=== PATIENT | female | born 1945 | race Caucasian/White ===

== ENCOUNTER 2019-04-26 14:54 | Outpatient (CLI) | payer MEDICARE ==
--- NOTE | 2019-04-27 13:54 | Ultrasound Report ---
Reason: MASS CHEST WALL Procedure Date: 04/26/2019 Accession Number: [id number] / [id number] Procedure: US - Chest CPT Code: Final Report FULL RESULT: EXAM: ABDOMEN ULTRASOUND LIMITED EXAM DATE: 04/26/2019 03:34 PM. CLINICAL HISTORY: MASS CHEST WALL. Palpable lump mid anterior chest x3 months COMPARISON: None. TECHNIQUE: Real-time scanning was performed with static images obtained. FINDINGS: No soft tissue masses seen in palpable area. No fluid collection. This region appears to have underlying manubrium or sternum. IMPRESSION: No ultrasonographic findings in palpable area RADIA
== END 2019-04-26 14:55 | disposition home or self-care (01) ==
LOC: DI 14:54
PROVIDERS: ATTEND Nurse Practitioner
DX: R22.2 Localized swelling, mass and lump, trunk (principal)
CPT/HCPCS: 76604

== ENCOUNTER 2019-12-08 10:24 | Outpatient (CLI) | payer MEDICARE | END 2019-12-08 23:59 | disposition critical access hospital (66) | LOC: EMS 10:24 | PROVIDERS: ATTEND Surgery | DX: R10.32 Left lower quadrant pain (principal); R11.0 Nausea; M54.9 Dorsalgia, unspecified | CPT/HCPCS: A0425; A0429 ==

== ENCOUNTER 2019-12-08 10:39 | Emergency (ER) | payer MEDICARE ==
[2019-12-08] MEDS ORDERED: ONDANSETRON 4 MG/2 ML VIAL IVP STA ×2 (10:53→13:06)
[2019-12-08] MEDS ORDERED: HYDROmorphone 1 MG/ML CARPUJECT IVP STA (10:53)
--- NOTE | 2019-12-08 10:54 | ED Physician Documentation ---
PD HPI ABD PAIN - Stated complaint Stated Complaint: ABD PX - Chief complaint Chief Complaint: Abd Pain - History obtained from History obtained from: Patient - Additional information Additional information: 74-year-old woman on Xarelto for history of remote DVT/PE presents with lower abdominal pain that is been going on for a week but only was severe today. Today it is associated with nausea and retching. Small but otherwise normal bowel movement just prior to arrival. No meds on the way. No fevers. No history of abdominal surgeries. No history of colonoscopy. Review of Systems Ten Systems: 10 systems reviewed and negative Constitutional: reports: Sweats, Reviewed and negative GI: reports: Abdominal Pain, Nausea. denies: Constipation, Diarrhea PD PAST MEDICAL HISTORY - Present Medications Home Medications: Ambulatory Orders Medication Instructions Recorded Confirmed Ciprofloxacin HCl [Cipro] 500 mg PO BID #20 tablet 12/08/19 Hydrocodone/Acetaminophen 1 - 2 each PO Q6H PRN #14 tablet 12/08/19 [Hydrocodon-Acetaminophen 5-325] Metoclopramide [Reglan] 10 mg PO Q6H PRN #20 tablet 12/08/19 metroNIDAZOLE [Flagyl] 500 mg PO TID #30 tablet 12/08/19 - Allergies Allergies/Adverse Reactions: Allergies Allergy/AdvReac Type Severity Reaction Status Date / Time Sulfa (Sulfonamide Allergy Unknown Verified 12/08/19 10:55 Antibiotics) prednisone AdvReac Nausea Verified 12/08/19 10:55 PD ED PE NORMAL - Vitals Vital signs reviewed: Yes - General General: Alert and oriented X 3, Other (Appears uncomfortable and retching) - HEENT HEENT: PERRL, EOMI - Neck Neck: Supple, no meningeal sign, No bony TTP - Cardiac Cardiac: RRR, No murmur - Respiratory Respiratory: No respiratory distress, Clear bilaterally - Abdomen Abdomen: Soft, Other (Tender in the right lower quadrant more than the left lower quadrant with mild guarding. Minimal upper abdominal tenderness.) - Back Back: No CVA TTP, No spinal TTP - Derm Derm: Normal color, Warm and dry - Extremities Extremities: No edema, No calf tenderness / cord - Neuro Neuro: Alert and oriented X 3, Normal speech Results - Vitals Vitals: Vital Signs - 24 hr 12/08/19 12/08/19 12/08/19 10:51 10:53 12:51 Temperature 37.9 C H Heart Rate 80 80 75 Respiratory 22 20 16 Rate Blood Pressure 174/95 H 139/79 H 128/65 O2 Saturation 100 100 100 12/08/19 13:19 Temperature 36.8 C Heart Rate 70 Respiratory 16 Rate Blood Pressure 129/74 O2 Saturation 100 Oxygen O2 Source Room air - Labs Labs: Laboratory Tests 12/08/19 12/08/19 12/08/19 10:50 10:50 12:37 WBC 8.9 RBC 4.64 Hgb 14.3 Hct 41.4 MCV 89.2 MCH 30.8 MCHC 34.5 RDW 11.9 L Plt Count 203 MPV 11.1 H Neut # (Auto) 6.7 H Lymph # (Auto) 1.3 L [place] # (Auto) 0.9 Eos # (Auto) 0.0 Baso # (Auto) 0.0 Absolute Nucleated RBC 0.00 Nucleated RBC % 0.0 Sodium 136 Potassium 4.0 Chloride 102 Carbon Dioxide 23 Anion Gap 11.0 BUN 15 Creatinine 0.9 Estimated GFR (MDRD) 62 L Glucose 124 H Calcium 9.1 Total Bilirubin 1.4 H AST 16 ALT 16 Alkaline Phosphatase 58 Total Protein 7.4 Albumin 4.4 Globulin 3.0 Albumin/Globulin Ratio 1.5 Lipase 36 Urine Color YELLOW Urine Clarity CLEAR Urine pH 8.0 H Ur Specific [place] 1.010 Urine Protein NEGATIVE Urine Glucose (UA) NEGATIVE Urine Ketones TRACE Urine Occult Blood TRACE-INTA Urine Nitrite NEGATIVE Urine Bilirubin NEGATIVE Urine Urobilinogen 0.2 (NORMAL) Ur Leukocyte Esterase NEGATIVE Ur Microscopic Review NOT INDICATED Urine Culture Comments NOT INDICATED - Rads (name of study) CT A/P Radiology: EMP read contemporaneously (Significant but uncomplicated diverticulitis) Procedures - Laceration (location) SCALP Other: Neurovascular intact Complexity: Simple PD MEDICAL DECISION MAKING - ED course ED course: 74-year-old woman presents with lower abdominal pain and tenderness. Found to have CT evidence of diverticulitis. No evidence of complication. Advised need for follow-up colonoscopy. Pain was controlled after a single 0.25 mg dose of IV Dilaudid noting that she says she is very sensitive to pain medications. Departure - Departure Disposition: 01 Home, Self Care Clinical Impression: Diverticulitis of gastrointestinal tract Condition: Good Record reviewed to determine appropriate education?: Yes Instructions: ED Diverticulitis Prescriptions: Ciprofloxacin HCl [Cipro] 500 mg PO BID #20 tablet metroNIDAZOLE [Flagyl] 500 mg PO TID #30 tablet Hydrocodone/Acetaminophen [Hydrocodon-Acetaminophen 5-325] 1 - 2 each PO Q6H PRN #14 tablet PRN Reason: pain Metoclopramide [Reglan] 10 mg PO Q6H PRN #20 tablet PRN Reason: nausea or headache Comments: Pain should be much better after a few days on the antibiotics. Return if worse. Do not drink alcohol while on the antibiotics. Do not exercise heavily while on the antibiotics as discussed, this is a trigger to suggest that you n eed a follow-up colonoscopy in about 2 months especially since you have never had one. Discuss this with your primary care physician. You can cut the pain medication in half since you are sensitive to pain pills. You can also use just Tylenol as needed. Discharge Date/Time: 12/08/19 13:51
[2019-12-08 11:07] LABS: BASOPHILS % (AUTO) 0.2 %; EOSINOPHILS % (AUTO) 0.1 %; HGB - HEMOGLOBIN 14.3 g/dL (12.0-16.0); LYMPHOCYTES # (AUTO) 1.3 10^3/uL (1.5-3.5); LYMPHOCYTES % (AUTO) 14.6 %; MEAN CORPUSCULAR HEMOGLOBIN 30.8 pg (27.0-31.0); MEAN CORPUSCULAR HGB CONC 34.5 g/dL (32.0-36.0); MEAN CORPUSCULAR VOLUME 89.2 fL (81.0-99.0); MEAN PLATELET VOLUME 11.1 fL (7.9-10.8); MONOCYTES # (AUTO) 0.9 10^3/uL (0.0-1.0); MONOCYTES % (AUTO) 9.6 %; NEUTROPHILS # (AUTO) 6.7 10^3/uL (1.5-6.6); NEUTROPHILS % (AUTO) 75.3 %; PLT - PLATELET COUNT 203 10^3/uL (130-450); RED BLOOD COUNT 4.64 10^6/uL (4.20-5.40); RED CELL DISTRIBUTION WIDTH 11.9 % (12.0-15.0); WHITE BLOOD COUNT 8.9 x10^3/uL (4.8-10.8)
[2019-12-08 11:34] LABS: ALBUMIN 4.4 g/dL (3.2-5.5); ALBUMIN/GLOBULIN RATIO 1.5 (1.0-2.2); BILIRUBIN,TOTAL 1.4 mg/dL (0.2-1.0); CALCIUM 9.1 mg/dL (8.5-10.3); CREATININE 0.9 mg/dL (0.4-1.0); TOTAL PROTEIN 7.4 g/dL (6.7-8.2)
--- NOTE | 2019-12-08 12:32 | CT Report ---
PROCEDURE: Abdomen/Pelvis W INDICATIONS: iv ONLY, LOW ABD PAIN CONTRAST: IV CONTRAST: Optiray 320 ml: 100 PO CONTRAST: *NO PO CONTRAST TECHNIQUE: After the administration of oral and intravenous contrast, 5 mm thick sections acquired from the diap hragms to the symphysis. 5 mm thick coronal and sagittal reformats were acquired. For radiation dos e reduction, the following was used: automated exposure control, adjustment of mA and/or kV accordin g to patient size. COMPARISON: None. FINDINGS: Image quality: Excellent. ABDOMEN: Lung bases: Lung bases are clear. Heart size is normal. Solid organs: Liver and spleen are normal in size and enhancement. Tiny well-circumscribed hypodens e area in the posterior segment of right hepatic lobe measures 5 mm in size is seen and is too small to characterize most likely represent benign process such as hepatic cyst. Small splenule is seen. Ga llbladder is within normal limits . Biliary system is non dilated. Pancreas enhances normally. No a drenal nodules. Kidneys demonstrate normal size and enhancement, without hydronephrosis. 1.2 cm carmita al cortical cyst is noted. Peritoneum and bowel: There is a small hiatal hernia. No evidence of bowel obstruction. Significant w all thickening involving proximal to mid sigmoid colon in left lower quadrant is seen. Numerous colon ic diverticuli are seen. Finding is suspicious for acute diverticulitis involving sigmoid colon. No d efinite extraluminal air is seen to suggest perforation. No discrete drainable abscess collection is noted. Adjacent distal ileum wall thickening is noted with mild mesenteric fat stranding likely repre sent reactive inflammatory changes. No peritoneal free fluid or free air. Nodes and vessels: No retroperitoneal or mesenteric adenopathy by size criteria. Aorta and inferior vena cava are normal in size. Miscellaneous: No ventral hernias. PELVIS: Genitourinary: Bladder wall thickness is normal. Miscellaneous: No inguinal hernias or adenopathy. Bones: No suspicious bony lesions. No vertebral body compression fractures. IMPRESSION: 1. Finding is concerning for acute diverticulitis involving proximal to mid sigmoid colon in left low er quadrant with significant adjacent inflammatory changes. No definite perforation is seen. No discr ete drainable abscess collection. Adjacent distal ileal wall thickening is noted extending to right l ower quadrant likely represent reactive inflammatory changes. No peritoneal free fluid or free air. 2. Small hiatal hernia. No evidence of bowel obstruction. 3. Tiny hypodensity in right lobe of liver likely represent hepatic cysts. Small splenule and left re nal cyst as above. No hydronephrosis. Reviewed by: Zain Perez MD on 12/08/2019 12:31 PM PDT Approved by: Zain Perez MD on 12/08/2019 12:31 PM PDT Station ID: [id number]
[2019-12-08] MEDS ORDERED: metroNIDAZOLE 250 MG TABLET PO STA (12:46)
[2019-12-08] MEDS ORDERED: CIPROFLOXACIN 250 MG TABLET PO STA (12:46)
[2019-12-08 12:47] LABS: BILIRUBIN,URINE NEGATIVE (NEGATIVE); GLUCOSE, URINE (UA) NEGATIVE (NEGATIVE); KETONES,URINE (UA) TRACE mg/dL (NEGATIVE); LEUKOCYTE ESTERASE, URINE NEGATIVE (NEGATIVE); NITRITE,URINE NEGATIVE (NEGATIVE); OCCULT BLOOD,URINE TRACE-INTA (NEGATIVE); PROTEIN,URINE NEGATIVE (NEGATIVE); UROBILINOGEN,URINE 0.2 (NORMAL) E.U./dL (NORMAL)
[2019-12-08 12:49] LABS: CLARITY,URINE CLEAR (CLEAR)
[2019-12-08 13:20] VITALS: BP 129/74
[2019-12-08] MEDS ORDERED: IOVERSOL 320 100 ML VIAL IVP ONE (13:20)
== END 2019-12-08 13:51 | disposition home or self-care (01) ==
LOC: EDUNIT# → ED 10:39
DX: K57.32 Diverticulitis of large intestine without perforation or abscess without bleeding (principal)
CPT/HCPCS: 36415; 74177; 80053; 81003; 83690; 85025; 96374; 96375; 96376; 99284; A9270; J1170; 81001; 87086

== ENCOUNTER 2020-01-31 09:29 | Outpatient (CLI) | payer MEDICARE ==
[2020-01-31 09:54] LABS: BASOPHILS % (AUTO) 0.4 %; EOSINOPHILS % (AUTO) 0.4 %; HGB - HEMOGLOBIN 14.9 g/dL (12.0-16.0); LYMPHOCYTES # (AUTO) 1.5 10^3/uL (1.5-3.5); MEAN CORPUSCULAR HEMOGLOBIN 30.2 pg (27.0-31.0); MEAN CORPUSCULAR HGB CONC 33.5 g/dL (32.0-36.0); MEAN CORPUSCULAR VOLUME 90.1 fL (81.0-99.0); MEAN PLATELET VOLUME 11.6 fL (7.9-10.8); MONOCYTES # (AUTO) 0.3 10^3/uL (0.0-1.0); MONOCYTES % (AUTO) 7.5 %; NEUTROPHILS # (AUTO) 2.6 10^3/uL (1.5-6.6); NEUTROPHILS % (AUTO) 58.5 %; PLT - PLATELET COUNT 176 10^3/uL (130-450); RED BLOOD COUNT 4.94 10^6/uL (4.20-5.40); RED CELL DISTRIBUTION WIDTH 12.6 % (12.0-15.0); WHITE BLOOD COUNT 4.5 x10^3/uL (4.8-10.8)
[2020-01-31 10:09] LABS: ALBUMIN 4.2 g/dL (3.2-5.5); ALBUMIN/GLOBULIN RATIO 1.6 (1.0-2.2); ALKALINE PHOSPHATASE 67 IU/L (42-121); ALT ALANINE AMINOTRANSFERASE 28 IU/L (10-60); AST ASPARTATE AMINOTRANSFERASE 26 IU/L (10-42); BUN - BLOOD UREA NITROGEN 19 mg/dL (6-20); CALCIUM 8.9 mg/dL (8.5-10.3); CARBON DIOXIDE - CO2 28 mmol/L (21-32); CHLORIDE 101 mmol/L (101-111); CHOL/HDL RATIO 3.9 (<4.4); CHOLESTEROL 193 mg/dL; CREATININE 0.7 mg/dL (0.4-1.0); GLUCOSE 100 mg/dL (70-100); HDL CHOLESTEROL 49 mg/dL; LDL CHOLESTEROL,CALCULATED 125 mg/dL; LDL/HDL RATIO 2.6 (<4.4); SODIUM 139 mmol/L (135-145); TOTAL PROTEIN 6.8 g/dL (6.7-8.2); VLDL CHOLESTEROL 19 mg/dL
== END 2020-01-31 09:30 | disposition home or self-care (01) ==
LOC: LAB 09:29
PROVIDERS: ATTEND Nurse Practitioner
DX: D68.51 Activated protein C resistance (principal); J32.9 Chronic sinusitis, unspecified; R05 Cough; K57.92 Diverticulitis of intestine, part unspecified, without perforation or abscess without bleeding; R22.2 Localized swelling, mass and lump, trunk
CPT/HCPCS: 36415; 80053; 80061; 83721; 84443; 85025

== ENCOUNTER 2020-03-17 08:50 | Day surgery (SDC) | payer MEDICARE ==
[2020-03-17] MEDS ORDERED: LACTATED RINGERS 1,000 ML IV ONE (09:33)
[2020-03-17] MEDS ORDERED: MIDAZOLAM 2 MG/2 ML VIAL IVP ONE (09:47)
[2020-03-17] MEDS ORDERED: fentaNYL 250 MCG/5 ML VIAL IVP ONE (09:47)
[2020-03-17] MEDS ORDERED: ONDANSETRON 4 MG/2 ML VIAL IVP ONE (09:47)
[2020-03-17] MEDS ORDERED: LACTATED RINGERS 700 ML IV ONE (10:47)
[2020-03-17 11:16] VITALS: BP 99/68
== END 2020-03-17 08:51 | disposition home or self-care (01) ==
LOC: SDS 08:50
PROVIDERS: ATTEND Surgery
DX: Z12.11 Encounter for screening for malignant neoplasm of colon (principal); K57.30 Diverticulosis of large intestine without perforation or abscess without bleeding; Z87.19 Personal history of other diseases of the digestive system
CPT/HCPCS: G0121; J3010; J7120

== ENCOUNTER 2020-07-07 12:16 | Outpatient (CLI) | payer MEDICARE ==
--- NOTE | 2020-07-07 15:56 | DEXA Report ---
PROCEDURE: Dexa Spine and/or Hip INDICATIONS: POSTMENOPAUSAL TECHNIQUE: Dual energy x-ray absorptiometry (DXA) was performed on a [employer] Video System. Regions measur ed are the AP Spine, femoral neck, and if needed forearm. COMPARISON: None. FINDINGS: Lumbar Spine: Bone Mineral Density 1.077 g/cm/cm,T score -0.9, Left Femoral Neck: Bone Mineral Density 0.743 g/cm/cm, T score -2.1, (T score greater or equal to -1.0: NORMAL) (T score from -1.1 to -2.4: OSTEOPENIA) (T score less than or equal to -2.5 to: OSTEOPOROSIS) Impression: Osteopenia. Patients with diagnosis of osteoporosis or osteopenia should have regular bone mineral density assess ment. For those eligible for Medicare, routine testing is allowed once every 2 years. Testing frequ ency can be increased for patients who have rapidly progressing disease or for those who are receivin g medical therapy to restore bone mass. Reviewed by: Ariel Cesar MD on 07/07/2020 3:54 PM PST Approved by: Ariel Cesar MD on 07/07/2020 3:54 PM PST Station ID: [id number]
== END 2020-07-07 12:17 | disposition home or self-care (01) ==
LOC: DI 12:16
PROVIDERS: ATTEND Nurse Practitioner
DX: M85.89 Other specified disorders of bone density and structure, multiple sites (principal); Z78.0 Asymptomatic menopausal state

== ENCOUNTER 2020-07-07 12:17 | Outpatient (CLI) | payer MEDICARE ==
--- NOTE | 2020-07-10 16:41 | Mammography Report ---
BILATERAL DIGITAL SCREENING MAMMOGRAM 3D/2D: 07/07/2020 CLINICAL: Routine screening. Comparison is made to exams dated: 09/25/2018 mammogram, 08/28/2017 mammogram, and 05/02/2016 mammogram - [place]. There are scattered fibroglandular elements in both breasts. No significant masses, calcifications, or other findings are seen in either breast. There has been no significant interval change. IMPRESSION: NEGATIVE There is no mammographic evidence of malignancy. A 1 year screening mammogram is recommended. This exam was interpreted at Station ID: [id number]. NOTE: For mammograms, a report in lay terms will be sent to the patient. Approximately 15% of breast malignancies will not be visualized mammographically. In the management of a palpable breast mass, a negative mammogram must not discourage biopsy of a clinically suspicious lesion. Electronically Signed By: Fabiano Briggs M.D. ar/penrad:07/07/2020 13:30:23 ACR BI-RADS Category 1: Negative 3341F PARENCHYMAL PATTERN: (A) - The breast(s) demonstrate(s) scattered fibroglandular densities. BI-RADS CATEGORY: (1) - 1 RECOMMENDATION: (ANNUAL) - Recommend routine annual screening mammography. [id number] 1 year screening LATERALITY: (B)
== END 2020-07-07 12:18 | disposition home or self-care (01) ==
LOC: DI 12:17
PROVIDERS: ATTEND Nurse Practitioner
DX: Z12.31 Encounter for screening mammogram for malignant neoplasm of breast (principal)

== ENCOUNTER 2021-01-04 15:51 | Outpatient (CLI) | payer MEDICARE | END 2021-01-04 15:52 | disposition home or self-care (01) | LOC: COV 15:51 | PROVIDERS: ATTEND Family Medicine | DX: R05 Cough (principal); R07.0 Pain in throat; R09.81 Nasal congestion; J34.89 Other specified disorders of nose and nasal sinuses; Z20.822 Contact with and (suspected) exposure to COVID-19 ==

== ENCOUNTER 2021-04-16 08:43 | Outpatient (CLI) | payer MEDICARE ==
--- NOTE | 2021-04-16 09:16 | XRAY Report ---
PROCEDURE: Knee 4 View RT INDICATIONS: KNEE PAIN,RIGHT TECHNIQUE: 4 views of the right knee(s) were acquired. COMPARISON: None. FINDINGS: Bones: Patellar osteophytes. A small medial compartment osteophyte. Suspect mild medial compartment joint space narrowing. No fractures or dislocations. No suspicious bony lesions. Soft tissues: Trace joint effusion. No suspicious soft tissue calcifications. 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 Trace joint effusion. Reviewed by: Anthony Rodríguez MD on 04/16/2021 9:14 AM PST Approved by: Anthony Rodríguez MD on 04/16/2021 9:14 AM PST Station ID: [id number]
== END 2021-04-16 08:44 | disposition home or self-care (01) ==
LOC: DI 08:43
PROVIDERS: ATTEND Nurse Practitioner
DX: M17.11 Unilateral primary osteoarthritis, right knee (principal); M25.461 Effusion, right knee

== ENCOUNTER 2022-04-10 09:23 | Outpatient (CLI) | payer MEDICARE ==
[2022-04-10 09:40] LABS: BASOPHILS % (AUTO) 0.7 %; EOSINOPHILS % (AUTO) 0.7 %; HGB - HEMOGLOBIN 14.8 g/dL (12.0-16.0); LYMPHOCYTES # (AUTO) 1.5 10^3/uL (1.5-3.5); LYMPHOCYTES % (AUTO) 33.6 %; MEAN CORPUSCULAR HEMOGLOBIN 29.8 pg (27.0-31.0); MEAN CORPUSCULAR HGB CONC 33.6 g/dL (32.0-36.0); MEAN CORPUSCULAR VOLUME 88.5 fL (81.0-99.0); MEAN PLATELET VOLUME 10.8 fL (7.9-10.8); MONOCYTES # (AUTO) 0.3 10^3/uL (0.0-1.0); MONOCYTES % (AUTO) 7.2 %; NEUTROPHILS # (AUTO) 2.6 10^3/uL (1.5-6.6); NEUTROPHILS % (AUTO) 57.6 %; PLT - PLATELET COUNT 204 10^3/uL (130-450); RED BLOOD COUNT 4.97 10^6/uL (4.20-5.40); RED CELL DISTRIBUTION WIDTH 12.1 % (12.0-15.0); WHITE BLOOD COUNT 4.4 x10^3/uL (4.8-10.8)
[2022-04-10 09:58] LABS: ALBUMIN 4.3 g/dL (3.2-5.5); ALBUMIN/GLOBULIN RATIO 1.4 (1.0-2.2); ALKALINE PHOSPHATASE 63 IU/L (42-121); ALT ALANINE AMINOTRANSFERASE 25 IU/L (10-60); AST ASPARTATE AMINOTRANSFERASE 25 IU/L (10-42); BILIRUBIN,TOTAL 0.7 mg/dL (0.2-1.0); BUN - BLOOD UREA NITROGEN 22 mg/dL (6-20); CALCIUM 9.1 mg/dL (8.5-10.3); CARBON DIOXIDE - CO2 30 mmol/L (21-32); CHLORIDE 100 mmol/L (101-111); CHOL/HDL RATIO 3.7 (<4.4); CHOLESTEROL 224 mg/dL; CREATININE 0.8 mg/dL (0.4-1.0); GFR - MDRD 70 (>89); GLUCOSE 95 mg/dL (70-100); HDL CHOLESTEROL 61 mg/dL; LDL CHOLESTEROL,CALCULATED 148 mg/dL; LDL/HDL RATIO 2.4 (<4.4); POTASSIUM 4.5 mmol/L (3.5-5.0); SODIUM 137 mmol/L (135-145); TOTAL PROTEIN 7.4 g/dL (6.7-8.2); TRIGLYCERIDES 77 mg/dL; VLDL CHOLESTEROL 15 mg/dL
[2022-04-10 10:10] LABS: THYROID STIMULATING HORMONE 2.47 uIU/mL (0.34-5.60)
== END 2022-04-10 09:24 | disposition home or self-care (01) ==
LOC: LAB 09:23
PROVIDERS: ATTEND Nurse Practitioner
DX: R53.83 Other fatigue (principal); Z13.220 Encounter for screening for lipoid disorders; Z51.81 Encounter for therapeutic drug level monitoring
CPT/HCPCS: 36415; 80053; 80061; 83721; 84443; 85025

== ENCOUNTER 2022-09-13 15:11 | Outpatient (CLI) | payer MEDICARE ==
--- NOTE | 2022-09-16 10:58 | Mammography Report ---
BILATERAL DIGITAL SCREENING MAMMOGRAM 3D/2D: 09/13/2022 CLINICAL: Routine screening. Family history of breast cancer. Comparison is made to exams dated: 07/07/2020 mammogram - [facility], 09/25/2018 mamm ogram, 08/28/2017 mammogram, 05/02/2016 mammogram, and 11/17/2014 mammogram - [place]. There are scattered areas of fibroglandular density in both breasts (category b / 25%-50% glandular t issue). There are benign cysts in the left breast. There also are benign calcifications in both breasts. No significant masses, calcifications, or other findings are seen in either breast. There has been no significant interval change. IMPRESSION: BENIGN There is no mammographic evidence of malignancy. A 1 year screening mammogram is recommended. Based on the Tyrer Cuzick model (a risk assessment model) the patients lifetime risk is 11.9% and he r 10 year risk is 10.8%. According to the ACR, ACS, and NCCN guidelines, an annual breast MRI exam al braden with mammogram is recommended if the patients lifetime risk is 20% or greater. This exam was interpreted at Station ID: [id number]. NOTE: For mammograms, a report in lay terms will be sent to the patient. Approximately 15% of breast malignancies will not be visualized mammographically. In the management of a palpable breast mass, a negative mammogram must not discourage biopsy of a clinically suspicious lesion. Electronically Signed By: Corey burns/[email or web address]:09/13/2022 20:55:16 letter sent: No_Letter ACR BI-RADS Category 2: Benign Finding(s) 3342F PARENCHYMAL PATTERN: (A) - The breast(s) demonstrate(s) scattered fibroglandular densities. BI-RADS CATEGORY: (2) - 2 Mammogram [id number] 1 year screening LATERALITY: (B)
== END 2022-09-13 15:12 | disposition home or self-care (01) ==
LOC: DI 15:11
DX: Z12.31 Encounter for screening mammogram for malignant neoplasm of breast (principal); Z80.3 Family history of malignant neoplasm of breast

== ENCOUNTER 2022-09-27 17:06 | Emergency (ER) | payer MEDICARE ==
[2022-09-27 17:56] LABS: BASOPHILS % (AUTO) 0.2 %; EOSINOPHILS % (AUTO) 0.1 %; HCT - HEMATOCRIT 40.5 % (37.0-47.0); HGB - HEMOGLOBIN 13.3 g/dL (12.0-16.0); LYMPHOCYTES # (AUTO) 2.1 10^3/uL (1.5-3.5); LYMPHOCYTES % (AUTO) 22.4 %; MEAN CORPUSCULAR HEMOGLOBIN 29.8 pg (27.0-31.0); MEAN CORPUSCULAR HGB CONC 32.8 g/dL (32.0-36.0); MEAN CORPUSCULAR VOLUME 90.6 fL (81.0-99.0); MEAN PLATELET VOLUME 10.9 fL (7.9-10.8); MONOCYTES # (AUTO) 0.8 10^3/uL (0.0-1.0); MONOCYTES % (AUTO) 8.6 %; NEUTROPHILS # (AUTO) 6.3 10^3/uL (1.5-6.6); NEUTROPHILS % (AUTO) 68.4 %; PLT - PLATELET COUNT 179 10^3/uL (130-450); RED BLOOD COUNT 4.47 10^6/uL (4.20-5.40); RED CELL DISTRIBUTION WIDTH 12.5 % (12.0-15.0); WHITE BLOOD COUNT 9.3 x10^3/uL (4.8-10.8)
[2022-09-27] MEDS ORDERED: SODIUM CHLORIDE 0.9% 1,000 ML IV STA (17:56)
[2022-09-27] MEDS ORDERED: ONDANSETRON 4 MG/2 ML VIAL IVP STA (17:56)
--- NOTE | 2022-09-27 17:58 | ED Physician Documentation ---
History of Present Illness - Stated complaint Stated Complaint: ABD/BACK PX - Chief complaint Chief Complaint: Abd Pain - Additonal information Additional information: 76-year-old female presents emergency department for evaluation of 1 week lower pelvic pain. She presents here at the request of the walk-in clinic. 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 Patient states that for much of the last week she has had a constant lower abdominal pain. Left side greater than right. Reporting mostly normal bowel movements though some constipation. No fevers. No pertinent past surgical history. Patient does have a history of factor V Leiden deficiency. She does take Xarelto. She does have a history of previous PE as well as DVT. Patient reports colonoscopy little more than a year ago which was unremarkable and no polyps found. Review of Systems Constitutional: denies: Fever, Chills Throat: reports: Reviewed and negative Cardiac: reports: Reviewed and negative Respiratory: reports: Reviewed and negative GI: reports: Abdominal Pain, Nausea, Constipation. 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: Dilation and currettage - Present Medications Home Medications: Ambulatory Orders Medication Instructions Recorded Confirmed Citalopram Hydrobromide [Celexa] 20 mg ORAL DAILY 03/17/20 09/27/22 Rivaroxaban [Xarelto] 20 mg ORAL DAILY 03/17/20 09/27/22 Amox/Clav 875/125 [Augmentin] 1 each PO Q12H #20 tablet 09/27/22 Omeprazole Magnesium 20 mg PO DAILY 09/27/22 09/27/22 - Allergies Allergies/Adverse Reactions: Allergies Allergy/AdvReac Type Severity Reaction Status Date / Time Sulfa (Sulfonamide Allergy Unknown Verified 09/27/22 18:12 Antibiotics) prednisone AdvReac Nausea Verified 09/27/22 18:12 - Social History Does the pt smoke?: No Smoking Status: Never smoker Does the pt drink ETOH?: No Does the pt have substance abuse?: No PD ED PE NORMAL - General General: Alert and oriented X 3, No acute distress - HEENT HEENT: Atraumatic, Moist mucous membranes - Neck Neck: Supple, no meningeal sign, No adenopathy - Cardiac Cardiac: RRR, No murmur - Respiratory Respiratory: No respiratory distress, Clear bilaterally - Abdomen Abdomen: Normal bowel sounds, Soft. No: Non tender (Focal tenderness bilateral lower quadrants of the abdomen left greater than right. 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0 Sodium 136 Potassium 3.9 Chloride 98 L Carbon Dioxide 27 Anion Gap 11.0 BUN 18 Creatinine 1.0 Estimated GFR (MDRD) 54 L Glucose 95 Calcium 8.9 Total Bilirubin 1.5 H AST 20 ALT 21 Alkaline Phosphatase 55 Total Protein 7.1 Albumin 4.2 Globulin 2.9 Albumin/Globulin Ratio 1.4 Lipase 33 Urine Color YELLOW Urine Clarity CLEAR Urine pH 6.5 Ur Specific [place] <=1.005 Urine Protein NEGATIVE Urine Glucose (UA) NEGATIVE Urine Ketones NEGATIVE Urine Occult Blood TRACE-LYSE Urine Nitrite POSITIVE H Urine Bilirubin NEGATIVE Urine Urobilinogen 0.2 (NORMAL) Ur Leukocyte Esterase NEGATIVE Urine RBC 0-5 Urine WBC 0-3 Ur Epithelial Cells FEW Transitional Ur Squamous Epith Cells FEW Squamous Urine Bacteria Rare Ur Microscopic Review INDICATED Urine Culture Comments INDICATED - Rads (name of study) CT abd Relevant Findings:: Final report received (Diverticulitis of the proximal sigmoid colon without pericolonic abscess. Follow-up colonoscopy is recommended to exclude underlying neoplasm. Normal appendix.) PD Medical Decision Making - ED course Complexity details: reviewed results, re-evaluated patient, d/w patient ED course: 76-year-old female that has a history of factor V Leiden deficiency on lifetime Xarelto presents the emergency department for evaluation of 1 week of lower abdominal tenderness left greater than right. She has had some mild constipation but no black or bloody stools. No pertinent past surgical history. On exam there was focal tenderness in the left lower quadrant but no guarding or rebound. We did obtain a Urinalysis. It was nitrite positive but no other markers of infection. Patient has no dysuria urgency or frequency. As such we will defer antibiotics unless the culture is grossly suggestive of infection. I did obtain CBC and electrolytes and per my interpretation again no acute worrisome findings. Subsequently a CT of the abdomen was completed and it did show uncomplicated diverticulitis without findings of perforation or abscess. The patient was administered a liter of IV fluids here in the emergency department and felt better on reexam. I did offer a short course of opioids to be discharged home with but she declined that. Given the lifetime Xarelto use she is not an NSAID candidate. We discussed the usual conservative care measures for diverticulitis as well as the emergent return precautions. She is advised to follow close with PCP to determine if she would benefit from an outpatient colonoscopy. Departure - Departure Disposition: 01 Home, Self Care Clinical Impression: Acute diverticulitis Condition: Stable Record reviewed to determine appropriate education?: Yes Instructions: Diverticulitis Dc Prescriptions: Amox/Clav 875/125 [Augmentin] 1 each PO Q12H #20 tablet Comments: Jessy came to the emergency department because you have had some pain in your lower abdomen now for several days. The CT scan does show diverticulitis but nothing to suggest perforation or abscess. This is typically treated with a short course of antibiotics. Prescription for Augmentin has been sent to the [facility] in [place]. Your first dose was given here in the ER. I would recommend that you have a clear liquid diet over the next 24 to 48 hours. If the antibiotics are making your pain better then you can start with simple foods like bananas, rice, applesauce and toast. If your pain is not improving, you develop fevers or have uncontrolled vomiting or black or bloody or mucoid stools you should return immediately to the ER. Please discuss this ED visit with your primary care provider. The general recommendation is to have a repeat colonoscopy several weeks after a diverticulitis event to ensure that there are no findings such as a mass that could have contributed to the development of diverticulitis.
[2022-09-27 18:04] LABS: ALBUMIN 4.2 g/dL (3.2-5.5); ALBUMIN/GLOBULIN RATIO 1.4 (1.0-2.2); BILIRUBIN,TOTAL 1.5 mg/dL (0.2-1.0); CALCIUM 8.9 mg/dL (8.5-10.3); POTASSIUM 3.9 mmol/L (3.5-5.0); TOTAL PROTEIN 7.1 g/dL (6.7-8.2)
[2022-09-27] MEDS ORDERED: iohexoL-300 100 ML VIAL ONE (18:38)
--- NOTE | 2022-09-27 19:01 | CT Report ---
PROCEDURE: ABDOMEN/PELVIS W INDICATIONS: lower abd pain; ? divertic CONTRAST: 1100ml omni 300 TECHNIQUE: After the administration of IV contrast, 5 mm thick sections acquired from the diaphragms to the symp hysis. 5 mm thick coronal and sagittal reformats were acquired. For radiation dose reduction, the f ollowing was used: automated exposure control, adjustment of mA and/or kV according to patient size. COMPARISON: 12/08/2019 CT FINDINGS: Image quality: Excellent. Lung bases and heart: Unremarkable. Liver: No solid mass. Gallbladder and biliary tree: Within normal limits Spleen: No splenomegaly. Pancreas: No pancreatic ductal dilation. Adrenals: No adrenal nodule. Kidneys and ureters: No hydronephrosis. No renal cystic lesion which requires follow up. No solid mas s. Bowel and peritoneum: Small hiatal hernia. No bowel distension. No pathologic free fluid. Normal appe ndix. Diverticulosis of the descending and sigmoid colon. Moderate thickening of the sigmoid colon pr oximally. Mild pericolonic fat stranding. No pericolonic abscess. Lymph nodes: No central or retroperitoneal adenopathy. Vessels: No infrarenal aortic aneurysm. PELVIS Reproductive organs: Unremarkable. Bladder: Unremarkable. Lymph nodes: Unremarkable. Bones: No aggressive osseous abnormality. Other: No significant ventral or inguinal hernia. IMPRESSION: 1. Diverticulitis of the proximal sigmoid colon without pericolonic abscess. Follow-up colonoscopy is recommended to exclude underlying neoplasm. 2. Normal appendix. Reviewed by: Eddie Pal MD on 09/27/2022 7:00 PM PDT Approved by: Eddie Pal MD on 09/27/2022 7:00 PM PDT Station ID: [id number]
[2022-09-27] MEDS ORDERED: iohexoL-300 100 ML VIAL IVP ONE (19:06)
[2022-09-27 19:10] LABS: BILIRUBIN,URINE NEGATIVE (NEGATIVE); GLUCOSE, URINE (UA) NEGATIVE (NEGATIVE); KETONES,URINE (UA) NEGATIVE (NEGATIVE); LEUKOCYTE ESTERASE, URINE NEGATIVE (NEGATIVE); NITRITE,URINE POSITIVE (NEGATIVE); OCCULT BLOOD,URINE TRACE-LYSE (NEGATIVE); PH,URINE 6.5 PH (5.0-7.5); PROTEIN,URINE NEGATIVE (NEGATIVE); UROBILINOGEN,URINE 0.2 (NORMAL) E.U./dL (NORMAL)
[2022-09-27 19:16] LABS: CLARITY,URINE CLEAR (CLEAR)
[2022-09-27] MEDS ORDERED: AMOX/CLAV 875 MG/125 MG TABLET PO STA (19:18)
[2022-09-27 19:26] LABS: RBC,URINE 0-5 /HPF (0-5); SQUAMOUS EPITHELIAL CELL,UR FEW Squamous (<= Few); WBC,URINE 0-3 /HPF (0-5)
[2022-09-27 19:27] LABS: BACTERIA,URINE Rare /HPF (None Seen); EPITHELIAL CELLS,UR FEW Transitional /HPF (<= Few)
[2022-09-27 20:06] VITALS: BP 123/79
== END 2022-09-27 20:06 | disposition home or self-care (01) ==
LOC: ED 17:06
DX: K57.32 Diverticulitis of large intestine without perforation or abscess without bleeding (principal)
CPT/HCPCS: 36415; 74177; 80053; 81001; 83690; 85025; 87086; 99284; A9270; Q9967; 81003

== ENCOUNTER 2022-10-31 07:44 | Outpatient (CLI) | payer MEDICARE ==
[2022-10-31 08:38] LABS: H. PYLORIS ANTIGEN STL NEGATIVE (Negative)
== END 2022-10-31 07:45 | disposition home or self-care (01) ==
LOC: LAB 07:44
PROVIDERS: ATTEND Physician Assistant
DX: K21.9 Gastro-esophageal reflux disease without esophagitis (principal); R14.0 Abdominal distension (gaseous)
CPT/HCPCS: 87338

== ENCOUNTER 2023-05-12 16:08 | Emergency (ER) | payer MEDICARE ==
[2023-05-12 16:30] VITALS: BP 147/90; O2SAT 97
[2023-05-12 16:38] LABS: BASOPHILS % (AUTO) 0.4 %; EOSINOPHILS % (AUTO) 0.4 %; HCT - HEMATOCRIT 41.6 % (37.0-47.0); HGB - HEMOGLOBIN 14.1 g/dL (12.0-16.0); LYMPHOCYTES # (AUTO) 1.6 10^3/uL (1.5-3.5); LYMPHOCYTES % (AUTO) 35.2 %; MEAN CORPUSCULAR HEMOGLOBIN 29.7 pg (27.0-31.0); MEAN CORPUSCULAR HGB CONC 33.9 g/dL (32.0-36.0); MEAN CORPUSCULAR VOLUME 87.8 fL (81.0-99.0); MEAN PLATELET VOLUME 10.4 fL (7.9-10.8); MONOCYTES # (AUTO) 0.5 10^3/uL (0.0-1.0); MONOCYTES % (AUTO) 10.6 %; NEUTROPHILS # (AUTO) 2.4 10^3/uL (1.5-6.6); NEUTROPHILS % (AUTO) 53.2 %; PLT - PLATELET COUNT 203 10^3/uL (130-450); RED BLOOD COUNT 4.74 10^6/uL (4.20-5.40); RED CELL DISTRIBUTION WIDTH 12.6 % (12.0-15.0); WHITE BLOOD COUNT 4.5 x10^3/uL (4.8-10.8)
[2023-05-12] MEDS ORDERED: AMOX/CLAV 875 MG/125 MG TABLET PO STA (16:50)
[2023-05-12 16:51] LABS: ALBUMIN 4.2 g/dL (3.2-5.5); ALBUMIN/GLOBULIN RATIO 1.5 (1.0-2.2); BILIRUBIN,TOTAL 0.6 mg/dL (0.2-1.0); CALCIUM 9.4 mg/dL (8.5-10.3); CREATININE 0.8 mg/dL (0.6-1.3)
--- NOTE | 2023-05-12 16:52 | ED Physician Documentation ---
PD HPI ABD PAIN - Stated complaint Stated Complaint: /LOWER ABD PX - Chief complaint Chief Complaint: Abd Pain - History obtained from History obtained from: Patient - Additional information Additional information: 77-year-old woman with history of recurrent diverticulitis requesting an antibiotic for her diverticulitis. She has had 3 days of lower abdominal pain associated with mild nausea and some loose stools without blood. She denies fevers. No history of abdominal surgeries. 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 - Present Medications Home Medications: Ambulatory Orders Medication Instructions Recorded Confirmed Citalopram Hydrobromide [Celexa] 20 mg ORAL DAILY 03/17/20 09/27/22 Rivaroxaban [Xarelto] 20 mg ORAL DAILY 03/17/20 09/27/22 Amox/Clav 875/125 [Augmentin] 1 each PO Q12H #20 tablet 09/27/22 Omeprazole Magnesium 20 mg PO DAILY 09/27/22 09/27/22 Amox/Clav 875/125 [Augmentin] 1 each PO TID #21 tablet 05/12/23 - Allergies Allergies/Adverse Reactions: Allergies Allergy/AdvReac Type Severity Reaction Status Date / Time Sulfa (Sulfonamide Allergy Unknown Verified 09/27/22 18:12 Antibiotics) prednisone AdvReac Nausea Verified 09/27/22 18:12 - Social History Does the pt smoke?: No Smoking Status: Never smoker Does the pt drink ETOH?: No Does the pt have substance abuse?: No PD ED PE NORMAL - Vitals Vital signs reviewed: Yes - General General: Alert and oriented X 3, No acute distress - Abdomen Abdomen: Soft, Non tender - Derm Derm: Normal color, Warm and dry - Neuro Neuro: Alert and oriented X 3, Normal speech Results - Vitals Vitals: Vital Signs - 24 hr 05/12/23 16:21 Temperature 36.8 C Heart Rate 68 Respiratory 18 Rate Blood Pressure 147/90 H O2 Saturation 97 Oxygen O2 Source Room air - Labs Labs: Laboratory Tests 05/12/23 05/12/23 16:33 16:33 WBC 4.5 L RBC 4.74 Hgb 14.1 Hct 41.6 MCV 87.8 MCH 29.7 MCHC 33.9 RDW 12.6 Plt Count 203 MPV 10.4 Neut # (Auto) 2.4 Lymph # (Auto) 1.6 [place] # (Auto) 0.5 Eos # (Auto) 0.0 Baso # (Auto) 0.0 Absolute Nucleated RBC 0.00 Nucleated RBC % 0.0 Sodium 137 Potassium 4.0 Chloride 102 Carbon Dioxide 31 Anion Gap 4.0 L BUN 17 Creatinine 0.8 Estimated GFR (MDRD) 70 L Glucose 97 Calcium 9.4 Total Bilirubin 0.6 AST 18 ALT 15 Alkaline Phosphatase 64 Total Protein 7.0 Albumin 4.2 Globulin 2.8 Albumin/Globulin Ratio 1.5 Lipase 53 PD Medical Decision Making - ED course ED course: 77-year-old woman with history of recurrent diverticulitis feeling like she is having a flare of same. She has a very benign exam. She had labs ordered in tr iage which demonstrate a CBC without leukocytosis, otherwise unremarkable. She says she did well with what ever antibiotic she got on her last visit here which review of the chart shows was Augmentin and this is prescribed. Departure - Departure Disposition: 01 Home, Self Care Clinical Impression: Diverticulitis of gastrointestinal tract Condition: Good Record reviewed to determine appropriate education?: Yes Instructions: ED Diverticulitis Prescriptions: Amox/Clav 875/125 [Augmentin] 1 each PO TID #21 tablet Comments: I sent your prescription electronically to [facility] in [place]. You should probably low residue diet for the next few days, see the attached instruction sheet. Return for new or worsening symptoms or not better over the next few days. Follow-up with your primary care physician later this week for recheck. Call for appointment. Forms: PCP List
== END 2023-05-12 17:09 | disposition home or self-care (01) ==
LOC: ED 16:08
DX: K57.92 Diverticulitis of intestine, part unspecified, without perforation or abscess without bleeding (principal)
CPT/HCPCS: 36415; 80053; 83690; 85025; 99283; A9270

== ENCOUNTER 2023-11-14 07:22 | Outpatient (CLI) | payer MEDICARE ==
[2023-11-14 07:35] LABS: BASOPHILS % (AUTO) 0.8 %; HCT - HEMATOCRIT 43.8 % (37.0-47.0); HGB - HEMOGLOBIN 14.5 g/dL (12.0-16.0); LYMPHOCYTES # (AUTO) 1.6 10^3/uL (1.5-3.5); LYMPHOCYTES % (AUTO) 40.2 %; MEAN CORPUSCULAR HEMOGLOBIN 29.4 pg (27.0-31.0); MEAN CORPUSCULAR HGB CONC 33.1 g/dL (32.0-36.0); MEAN CORPUSCULAR VOLUME 88.7 fL (81.0-99.0); MEAN PLATELET VOLUME 10.6 fL (7.9-10.8); MONOCYTES # (AUTO) 0.4 10^3/uL (0.0-1.0); MONOCYTES % (AUTO) 9.3 %; NEUTROPHILS # (AUTO) 1.9 10^3/uL (1.5-6.6); NEUTROPHILS % (AUTO) 48.4 %; PLT - PLATELET COUNT 203 10^3/uL (130-450); RED BLOOD COUNT 4.94 10^6/uL (4.20-5.40); RED CELL DISTRIBUTION WIDTH 12.5 % (12.0-15.0)
[2023-11-14 07:49] LABS: % IRON SATURATION 37 % (20-50); ALBUMIN 4.4 g/dL (3.2-5.5); ALBUMIN/GLOBULIN RATIO 1.6 (1.0-2.2); ALKALINE PHOSPHATASE 78 IU/L (42-121); ALT ALANINE AMINOTRANSFERASE 17 IU/L (10-60); AST ASPARTATE AMINOTRANSFERASE 20 IU/L (10-42); BILIRUBIN,TOTAL 0.9 mg/dL (0.2-1.0); BUN - BLOOD UREA NITROGEN 23 mg/dL (6-20); CALCIUM 9.1 mg/dL (8.5-10.3); CARBON DIOXIDE - CO2 33 mmol/L (21-32); CHLORIDE 102 mmol/L (101-111); CHOL/HDL RATIO 3.8 (<4.4); CHOLESTEROL 203 mg/dL; CREATININE 0.9 mg/dL (0.6-1.3); GFR - MDRD 61 (>89); GLUCOSE 105 mg/dL (74-104); HDL CHOLESTEROL 53 mg/dL; IRON 128 ug/dL (50-212); LDL CHOLESTEROL,CALCULATED 118 mg/dL; LDL/HDL RATIO 2.2 (<4.4); SODIUM 138 mmol/L (135-145); TOTAL IRON BINDING CAPACITY 349 ug/dL (250-450); TOTAL PROTEIN 7.1 g/dL (6.4-8.9); TRANSFERRIN 249 mg/dL (203-362); TRIGLYCERIDES 161 mg/dL (48-352); VLDL CHOLESTEROL 32 mg/dL
[2023-11-14 08:05] LABS: THYROID STIMULATING HORMONE 6.12 uIU/mL (0.34-5.60)
[2023-11-14 08:10] LABS: FERRITIN 37.1 ng/mL (11.0-306.8)
== END 2023-11-14 07:23 | disposition home or self-care (01) ==
LOC: LAB 07:22
PROVIDERS: ATTEND Nurse Practitioner
DX: R53.83 Other fatigue (principal); Z51.81 Encounter for therapeutic drug level monitoring; E78.5 Hyperlipidemia, unspecified; G47.62 Sleep related leg cramps; Z86.711 Personal history of pulmonary embolism
CPT/HCPCS: 36415; 80053; 80061; 82728; 83540; 83721; 84439; 84443; 84466; 85025

== ENCOUNTER 2023-11-24 13:06 | Outpatient (CLI) | payer MEDICARE ==
--- NOTE | 2023-11-25 08:41 | Mammography Report ---
BILATERAL DIGITAL SCREENING MAMMOGRAM 3D/2D: 11/24/2023 CLINICAL: Routine screening. Comparison is made to exams dated: 09/13/2022 mammogram, 07/07/2020 mammogram - [facility], 09/25/2018 mammogram, 08/28/2017 mammogram, 05/02/2016 mammogram, and 11/17/2014 mammogram - [facility]. Both breasts are heterogeneously dense, which may obscure small masses (category c / 51-75% glandular tissue). There are benign masses in both breasts. There also are benign calcifications in both breasts. No significant masses, calcifications, or other findings are seen in either breast. There has been no significant interval change. IMPRESSION: BENIGN There is no mammographic evidence of malignancy. A 1 year screening mammogram is recommended. Based on the Tyrer Cuzick model (a risk assessment model) the patient's lifetime risk is 15.1% and he r 10 year risk is 0.0%. According to the ACR, ACS, and NCCN guidelines, an annual breast MRI exam memo ng with mammogram is recommended if the patient's lifetime risk is 20% or greater. This exam was interpreted at Station ID: [id number]. NOTE: For mammograms, a report in lay terms will be sent to the patient. Approximately 15% of breast malignancies will not be visualized mammographically. In the management of a palpable breast mass, a negative mammogram must not discourage biopsy of a clinically suspicious lesion. Electronically Signed By: Karl [email or web address]/leonardo:11/24/2023 14:59:14 letter sent: No_Letter ACR BI-RADS Category 2: Benign Finding(s) 3342F PARENCHYMAL PATTERN: (D) - The breast(s) demonstrate(s) heterogeneously dense fibroglandular parmauroy ma. BI-RADS CATEGORY: (2) - 2 RECOMMENDATION: (ANNUAL) - Recommend routine annual screening mammography. [id number] 1 year screening LATERALITY: (B)
== END 2023-11-24 13:07 | disposition home or self-care (01) ==
LOC: DI 13:06
DX: Z12.31 Encounter for screening mammogram for malignant neoplasm of breast (principal); R92.333 Mammographic heterogeneous density, bilateral breasts

== ENCOUNTER 2023-11-24 13:28 | Outpatient (CLI) | payer MEDICARE ==
--- NOTE | 2023-11-24 13:48 | DEXA Report ---
PROCEDURE: Dexa Spine and/or Hip INDICATIONS: POST MENOPAUSAL TECHNIQUE: Dual energy x-ray absorptiometry (DXA) was performed on a [employer] System. Regions measur ed are the AP Spine, femoral neck, and if needed forearm. COMPARISON: DEXA 07/07/2020 FINDINGS: Lumbar Spine: Bone Mineral Density: 1.1 g/cm/cm,T score: -0.7, compared to -0.9. Left Femoral Neck: Bone Mineral Density: 0.647 g/cm/cm, T score: -2.8 compared to -2.4. Left Hip: Bone Mineral Density: 0.766 g/cm/cm,T score: -1.9, compared to -2.1. 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 Patients with diagnosis of osteoporosis or osteopenia should have regular bone mineral density assess ment. For those eligible for Medicare, routine testing is allowed once every 2 years. Testing frequ ency can be increased for patients who have rapidly progressing disease or for those who are receivin g medical therapy to restore bone mass. Reviewed by: Elke Hilton MD on 11/24/2023 1:47 PM PDT Approved by: Elke Hilton MD on 11/24/2023 1:47 PM PDT Station ID: [id number]
== END 2023-11-24 13:29 | disposition home or self-care (01) ==
LOC: DI 13:28
PROVIDERS: ATTEND Nurse Practitioner
DX: M81.0 Age-related osteoporosis without current pathological fracture (principal); Z78.0 Asymptomatic menopausal state

== ENCOUNTER 2024-01-30 12:00 | Outpatient (CLI) | payer MEDICARE ==
--- NOTE | 2024-01-30 12:51 | XRAY Report ---
PROCEDURE: Shoulder 2+V RT INDICATIONS: PAIN IN RIGHT SHOULDER TECHNIQUE: 2 views of the shoulder were acquired. COMPARISON: None. FINDINGS: Bones: No fractures or dislocations. No suspicious bony lesions. Visualized ribs appear intact. There is moderate AC joint degenerative change present. Soft tissues: No suspicious soft tissue calcifications. The visualized lungs are within normal limi ts. IMPRESSION: 1. No evidence for acute osseous abnormality involving the right shoulder. 2. Moderate AC joint degenerative change. Reviewed by: Donald Carter MD on 01/30/2024 12:49 PM PDT Approved by: Donald Carter MD on 01/30/2024 12:49 PM PDT Station ID: [id number]
== END 2024-01-30 12:15 | disposition home or self-care (01) ==
LOC: DI.N 12:00
PROVIDERS: ATTEND Nurse Practitioner
DX: M19.011 Primary osteoarthritis, right shoulder (principal)